=== PATIENT | female | born 1990 | race Caucasian/White ===

== ENCOUNTER 2017-01-03 17:18 | Emergency (ER) | payer OTHER ==
[~2017-01-03 17:18] MED LIST: DESYREL50 MG PO; FLEXERIL10 MG PO; LASIX20 MG PO; MOTRIN100 MG/5 M PO; MOTRIN400 MG PO; PHENERGAN25 MG PO; WELLBUTRIN; ZITHROMAX1 G/PKT PO; ZYRTEC
== END 2017-01-03 18:47 | disposition home or self-care (01) ==
LOC: SED 17:18
DX: L55.0 Sunburn of first degree (principal); J45.909 Unspecified asthma, uncomplicated; F32.9 Major depressive disorder, single episode, unspecified; F17.210 Nicotine dependence, cigarettes, uncomplicated; Z88.1 Allergy status to other antibiotic agents
CPT/HCPCS: 99282; 99283

== ENCOUNTER 2017-03-28 10:58 | Emergency (ER) | payer BC, OTHER ==
[2017-03-28 11:28] LABS: URINE SOURCE CLEAN CATCH
[2017-03-28 11:39] LABS: URINE APPEARANCE CLEAR; URINE BILIRUBIN NEG (NEG); URINE BLOOD NEG (NEG); URINE COLOR YELLOW; URINE GLUCOSE NEG (NORM); URINE KETONE NEG (NEG); URINE LEUKOCYTE ESTERASE 2+ (NEG); URINE NITRATE NEG (NEG); URINE PH 6.5 (5-8); URINE PROTEIN NEG (NEG); URINE SPECIFIC GRAVITY 1.015 (1.003-1.035); URINE UROBILINOGEN 0.2 MG/DL (NORM)
[2017-03-28 11:42] LABS: MICRO INDICATED? YES
[2017-03-28 11:47] LABS: URINE BACTERIA NEG (NEG); URINE RBC NEG /[HPF] (0-2)
[2017-03-28 11:48] LABS: CULTURE INDICATED? NO; URINE SQUAMOUS EPITHELIAL CELL MODERATE /[HPF]
[2017-03-30 01:12] LABS: CHLAMYDIA TRACH Not Detected (Not Detected); N GONOR Not Detected (Not Detected)
== END 2017-03-28 12:30 | disposition home or self-care (01) ==
LOC: SED 10:58
PROVIDERS: Student in an Organized Health Care Education/Training Program
DX: N73.0 Acute parametritis and pelvic cellulitis (principal); F41.9 Anxiety disorder, unspecified; F17.200 Nicotine dependence, unspecified, uncomplicated; Z88.1 Allergy status to other antibiotic agents
CPT/HCPCS: 81003; 84703; 87491; 87591; 87808; 87905; 96372; 99284; J0696

== ENCOUNTER 2017-06-15 16:13 | Emergency (ER) | payer OTHER ==
[~2017-06-15] VITALS: Ht 162.6 cm; Wt 90.7 kg
== END 2017-06-15 18:25 | disposition home or self-care (01) ==
LOC: SED 16:13
DX: J06.9 Acute upper respiratory infection, unspecified (principal); R11.0 Nausea; R19.7 Diarrhea, unspecified; J45.909 Unspecified asthma, uncomplicated; F17.210 Nicotine dependence, cigarettes, uncomplicated; Z88.1 Allergy status to other antibiotic agents
CPT/HCPCS: 99284